=== PATIENT | female | born 1985 | race Caucasian/White ===

== ENCOUNTER → 2021-06-21 | Day surgery (SDC) | payer OTHER ==
[~2021-06-21] MED LIST: BUPIVACAINE 0.25% 30ML SDV ONE; BUPIVACAINE HCL 0.5% INJ 30 ML VIAL INJ ONE; DEXAMETHASONE SOD PHOS INJ 4 MG/ML SDV ONE; FENTANYL CITRATE/PF 100MCG/2 ML INJ ONE; FERROUS SULFAT324 MG PO; KETOROLAC TROMETHAMINE 30 MG/ML VIAL ONE; LIDOCAINE 1% W/EPINEPHRINE 20 ML VIAL ONE; LIDOCAINE 2% /EPINEPHRINE 20 ML SDV INJ ONE; LIDOCAINE HCL 2% LOCAL INJ 5 ML SDV VIAL INJ ONE; MIDAZOLAM HCL 2 MG/2 ML VIAL ONE; ONDANSETRON HCL INJ 2MG/ML 2ML 2 MG/ML VIAL ONE; POVIDONE IODINE 0.05% 0.05 % ML PO ONE; PROPOFOL IV EMULSION 10 MG/ML 20 ML VIAL ONE; SEVOFLURANE INHAL SOLN 250 ML PEN BTL ONE; SODIUM CHLORIDE 0.9% 50ML 100 ML ONE
[2021-06-21] MEDS: MEPERIDINE HCL INJ 25 MG/ML VIAL ONE (17:30)
[2021-06-21] MEDS: ONDANSETRON HCL INJ 2MG/ML 2ML 2 MG/ML VIAL ONE (17:40)
[2021-06-21] MEDS: HYDROMORPHONE 1MG/1ML INJ ONE (17:44)
[2021-06-21] MEDS: Morphine 2mg Syringe 2 MG/ML SYR ONE (18:05)
[2021-06-21 18:15] VITALS: BP 110/53
== END | disposition home or self-care (01) ==
LOC: OR 13:11
PROVIDERS: ATTEND Orthopaedic Surgery
DX: S83.511A Sprain of anterior cruciate ligament of right knee, initial encounter (principal); S83.231A Complex tear of medial meniscus, current injury, right knee, initial encounter; M67.51 Plica syndrome, right knee; D64.9 Anemia, unspecified; F41.9 Anxiety disorder, unspecified; X58.XXXA Exposure to other specified factors, initial encounter; Z86.16 Personal history of COVID-19
CPT/HCPCS: 81025; C1713; C1769; J0690; J1100; J1170; J1885; J2001; J2175; J2250; J2270; J2405; J3010